=== PATIENT | male | born 1975 ===

== ENCOUNTER 2019-02-13 00:24 | Emergency (ER) | payer SELFPAY ==
[2019-02-13] MEDS ORDERED: NS 0.9% 1000 ML** 2,000 ML IV ONE (00:49)
[2019-02-13] MEDS ORDERED: Pantoprazole IV* 40 MG IV ONE (01:05)
[2019-02-13] MEDS ORDERED: Ondansetron INJ* 2 MG/ML VIAL IV ONE (01:05)
[2019-02-13 01:10] LABS: ABS Eosinophils 0.1 10^3/ul (0-0.6); ABS Lymphocytes 1.5 10^3/ul (1.0-4.8); ABS Monocytes 0.6 10^3/ul (0-0.8); ABS Neutrophils 3.8 10^3/ul (1.5-7.7); Eosinophil % 2.2 %; Hematocrit 43 % (42-52); Hemoglobin 14.6 g/dL (14.0-18.0); Lymphocyte % 24.5 %; Mean Corpuscular HGB Conc 34 g/dL (31-36); Mean Corpuscular Hemoglobin 29 pg (27-31); Mean Corpuscular Volume 85 fL (80-94); Mean Platelet Volume 8.2 fL (7.4-10.4); Nucleated Red Blood Cells % 0.1; Platelet Count 278 10^3/uL (150-450); Red Blood Count 5.03 10^6 /uL (4.18-5.48); Red Cell Distribution Width 14 % (10-15); White Blood Count 5.9 10^3/uL (3.5-10.8)
[2019-02-13 01:24] LABS: Anion Gap 8 mmol/L (2-11); CO2 Carbon Dioxide 27 mmol/L (22-32); Calcium 9.1 mg/dL (8.6-10.3); Chloride 106 mmol/L (101-111); Potassium 3.3 mmol/L (3.5-5.0); Sodium 141 mmol/L (135-145)
[2019-02-13 01:30] LABS: ALT 17 U/L (7-52); AST 18 U/L (13-39); Albumin/Globulin Ratio 1.4 (1-3); Alkaline Phosphatase 43 U/L (34-104); BUN/Creatinine Ratio 17.8 (8-20); Blood Urea Nitrogen 19 mg/dL (6-24); EGFR African American 91.3 (>60); EGFR Non-African American 75.4 (>60); Globulin 2.9 g/dL (2-4); Glucose 104 mg/dL (70-100); Total Protein 6.9 g/dL (6.4-8.9)
[2019-02-13 01:57] LABS: Acetaminophen < 15 mcg/mL; Alcohol < 10 mg/dL (<10); Salicylate < 2.50 mg/dL (<30)
--- NOTE | 2019-02-13 03:04 | ED ---
Substance Abuse/Use - HPI Summary HPI Summary: Patient is a 43 y/o M presenting to [facility] via EMS with complaints of N/V after consuming a couple of glasses of wine and smoking marijuana the evening of 02/12. He denies CP, SOB, cough, fever, diarrhea, abdominal pain. Currently, the patient reports that he feels "much better". Home medications and allergies are reviewed. - History Of Current Complaint Chief Complaint: EDSubstanceAbuse Stated Complaint: ALLERGIC REACTION PER Time Seen by Provider: 02/13/19 00:35 Hx Obtained From: Patient Onset/Duration of Drug/ETOH Abuse: Hours Ingestion History: Type/Name Of Drug - alcohol and marijuana, Amount Ingested - a couple glasses of wine Overdose Characteristics: Oral, IV Timing Of Abuse: Intermittent Severity Currently: None - Sx resolved Associated Signs And Symptoms: Nausea, Vomiting PMH/Surg Hx/FS Hx/Imm Hx Sensory History: Denies: Hx Legally Blind, Hx Deafness Opthamlomology History: Denies: Hx Legally Blind EENT History: Denies: Hx Deafness - Immunization History Immunizations Up to Date: Yes Infectious Disease History: No Infectious Disease History: Denies: Traveled Outside the [place] in Last 30 Days - Family History Known Family History: Negative: Respiratory Disease - Social History Alcohol Use: Daily Substance Use Type: Reports: Marijuana Smoking Status (MU): Never Smoked Tobacco Review of Systems Negative: Fever Negative: Chest Pain Negative: Shortness Of Breath, Cough Positive: Vomiting, Nausea. Negative: Abdominal Pain, Diarrhea All Other Systems Reviewed And Are Negative: Yes Physical Exam - Summary Physical Exam Summary: General: Well-developed, Well-nourished male. No acute distress. HEENT: Normocephalic, Atraumatic. Eyes: Conjuctiva normal, PERRL. Ears: TMs within normal limits. Nares: (-) discharge, (-) erythema. Oropharynx: Clear, mucous membranes moist, (-) exudates. Neck: Soft, FROM, (-) lymphadenopathy, (-) thyromegaly, (-) JVD. Cardiovascular: Normal sinus rhythm, (-) murmur. Lungs: Clear to auscultation bilaterally (-) wheezes, (-) rales, (-) rhonchi. Abdomen: Soft, non-tender, non-distended, (-) organomegaly, normal bowel sounds. Back: (-) CVA tenderness Extremities: No edema. Skin: Warm, dry, (-) rash. Neuro: Alert and oriented x3, no focal deficits. Psychiatric: Mood normal, affect normal. Triage Information Reviewed: Yes Vital Signs On Initial Exam: Initial Vitals Temp Pulse Resp BP Pulse Ox 98.6 F 86 16 122/84 99 02/13/19 00:32 02/13/19 00:32 02/13/19 00:32 02/13/19 00:32 02/13/19 00:32 Vital Signs Reviewed: Yes Procedures - Sedation Patient Received Moderate/Deep Sedation with Procedure: No Diagnostics - Vital Signs Vital Signs Temp Pulse Resp BP Pulse Ox 02/13/19 01:36 63 120/70 99 02/13/19 01:06 71 108/81 99 02/13/19 01:00 82 100 02/13/19 00:36 87 122/84 99 02/13/19 00:32 98.6 F 86 16 122/84 99 - Laboratory Lab Results: Lab Results 02/13/19 02/13/19 02/13/19 Range/Units 01:01 01:01 01:01 WBC 5.9 (3.5-10.8) 10^3/uL RBC 5.03 (4.18-5.48) 10^6 /uL Hgb 14.6 (14.0-18.0) g/dL Hct 43 (42-52) % MCV 85 (80-94) fL MCH 29 (27-31) pg MCHC 34 (31-36) g/dL RDW 14 (10-15) % Plt Count 278 (150-450) 10^3/uL MPV 8.2 (7.4-10.4) fL Neut % (Auto) 63.4 % Lymph % (Auto) 24.5 % Rooks % (Auto) 9.3 % Eos % (Auto) 2.2 % Baso % (Auto) 0.6 % Absolute Neuts (auto) 3.8 (1.5-7.7) 10^3/ul Absolute Lymphs (auto) 1.5 (1.0-4.8) 10^3/ul Absolute Monos (auto) 0.6 (0-0.8) 10^3/ul Absolute Eos (auto) 0.1 (0-0.6) 10^3/ul Absolute Basos (auto) 0.0 (0-0.2) 10^3/ul Absolute Nucleated RBC 0.0 10^3/ul Nucleated RBC % 0.1 Sodium 141 (135-145) mmol/L Potassium 3.3 L (3.5-5.0) mmol/L Chloride 106 (101-111) mmol/L Carbon Dioxide 27 (22-32) mmol/L Anion Gap 8 (2-11) mmol/L BUN 19 (6-24) mg/dL Creatinine 1.07 (0.67-1.17) mg/dL Est GFR ( Amer) 91.3 (>60) Est GFR (Non-Af Amer) 75.4 (>60) BUN/Creatinine Ratio 17.8 (8-20) Glucose 104 H (70-100) mg/dL Lactic Acid 2.0 (0.5-2.0) mmol/L Calcium 9.1 (8.6-10.3) mg/dL Total Bilirubin 0.40 (0.2-1.0) mg/dL AST 18 (13-39) U/L ALT 17 (7-52) U/L Alkaline Phosphatase 43 (34-104) U/L Total Protein 6.9 (6.4-8.9) g/dL Albumin 4.0 (3.2-5.2) g/dL Globulin 2.9 (2-4) g/dL Albumin/Globulin Ratio 1.4 (1-3) Salicylates < 2.50 (<30) mg/dL Acetaminophen < 15 mcg/mL Serum Alcohol < 10 (<10) mg/dL Result Diagrams: 02/13/19 01:01 02/13/19 01:01 Lab Statement: Any lab studies that have been ordered have been reviewed, and results considered in the medical decision making process. Course/Dx - Course Course Of Treatment: 43 year old male with vomiting after alcohol and marijuana use. workup showed no significant abnormality. patient became awake and alert, oriented x 3. During ED course, patient recieved zofran 4 mg IV, protonix 40 mg IV, and fluids. patient discharged to home. follow up sooner for any worsening symptoms - Diagnoses Provider Diagnoses: Vomiting Discharge ED - Sign-Out/Discharge Documenting (check all that apply): Patient Departure - discharge - Discharge Plan Condition: Stable Disposition: HOME Patient Education Materials: Acute Nausea and Vomiting (ED) Referrals: Care [facility] [Outside] Additional Instructions: PLEASE RETURN TO ED FOR ANY NEW OR WORSENING SYMPTOMS. PLEASE FOLLOW UP WITH YOUR PRIMARY CARE PHYSICIAN WITHIN THREE DAYS. - Billing Disposition and Condition Condition: STABLE Disposition: Home - Attestation Statements Document Initiated by Simeon: Yes Documenting Scribe: RONDA ENGEL Provider For Whom Scribe is Documenting (Include Credential): FLORIN DUFFY MD Scribe Attestation: RONDA Aguillon, scribed for FLORIN DUFFY MD on 02/13/19 at 0615. Scribe Documentation Reviewed: Yes Provider Attestation: The documentation as recorded by the RONDA guaman accurately reflects the service I personally performed and the decisions made by me, FLORIN DUFFY MD Status of Scribe Document: Viewed
[2019-02-13 04:25] VITALS: BP 115/59
== END 2019-02-13 04:24 | disposition home or self-care (01) ==
LOC: ED 00:24
DX: R11.10 Vomiting, unspecified (principal)
CPT/HCPCS: 36415; 80053; 80320; 80329; 83605; 85025; 93005; 96374; 96375; 99283; G0480; J2405